=== PATIENT | male | born 1935 | race Caucasian/White ===

== ENCOUNTER 2018-05-10 06:55 | Inpatient (IN) | payer MEDICARE, OTHER ==
--- NOTE | 2018-04-27 16:04 | NUR ---
KATELYN 1320 PATIENT HERE TODAY FOR PREADMISSION APPOINTMENT. HE WAS ACCOMPANIED BY HIS DAUGHTER. HE IS SCHEDULED FOR A RIGHT TOTAL HIP ARTHROPLASTY ON 05/10/18. HIS TIKI WILL BE THE ONE TO TRANSPORT HIM HOME AND TO APPOINTMENTS. HE STATES HE HAS BEEN TO THE [facility] FOR "A WORK UP BEFORE SURGERY" HE WOULD LIKE PHYSICAL THERAPY SET UP WITH THEM FOR AFTER SURGERY. HE STATES HE HAS A FRONT WHEELED WALKER FROM WHEN HE HAD KNEE REPLACMENT SURGERY. HE STATES HE HAS 3 STEPS INTO THE HOME AND NO STEPS ONCE INSIDE THE HOME EXCEPT TO GO TO THE BASEMENT WHICH HE WILL NO BE DOING. HE STATES THEY HAVE A TUB SHOWER WITH A HAND HELD SHOWER HEAD. WE SPOKE IN DEPTH REGARDING THE NEED FOR A SHOWER BENCH/CHAIR AND POSSIBLY A RAISED TOILET SEAT. WE SPOKE REGARDING NOT BRINGING THE KNEE ABOVE THE LEVEL OF THE HIP SO GETTING INTO THE BATH TUB AND SITTING DOWN IN THE TUB WOULD NOT BE A GOOD IDEA. HE AND THE DAUGHTER VERBALIZED UNDERSTANDING. RESOURCES WERE GIVEN FOR THEM TO PURCHASE OR BORROW THESE ITEMS. THIS INFORMATION WILL BE SENT TO DR SAMINA RONDON AND REEMA PLANNING FOR FURTHER FOLLOW UP.
[~2018-05-10] VITALS: Ht 160 cm; Wt 67.1 kg
[~2018-05-10 06:55] MED LIST: AGGRENOX 25 MG-21 EA PO; AMLODIPINE BESY10 MG PO; BUPROPION XL150 MG PO; CENTRUM SILVER1 EAC1 PO; COZAAR100 MG PO; FISH OIL 1,2001 EACH PO; GLUCOPHAGE500 MG PO; GLUCOSAMINE &1 EAC1 PO; HYDROCHLOROTH12.5 MG PO; MELATONIN5 M2 PO; MELOXICAM7.5 MG PO; PERCOCET 7.5-31 EACH PO; PLAVIX75 MG PO; PROBENECID-COL1 EACH PO; SIMVASTATIN40 MG PO; TRAZODONE HCL50 MG PO; VITAMIN D-32000 UNIT PO
--- NOTE | 2018-05-10 11:37 | NUR ---
05/10/18 1137 Aaron Gleason CRNA INJECTING PT WITH CLEAR FLUID AFTER INITIAL BLOOD PRESSURE.
--- NOTE | 2018-05-10 13:48 | NUR ---
DIRECTED FAMILY TO PT'S RM THEY CONTINUE TO ARRIVE. DAUGHTERS AND TIKI PRESENT IN RM ALONG WITH PT'S SULFUR BURNER. I EXTENDED A BLESSING AND LET SULFUR BURNER CARE FOR FAMILY. WILL FOLLOW NEEDED
--- NOTE | 2018-05-10 14:23 | NUR ---
PT IN BED, WITH TIKI AT HIS SIDE. PT WAS READING RECOVERY MATERIAL SUPPLIED BY STAFF. HE HAD NO PAIN, TIKI MENTIONED THAT HIS HIP JOINT WAS FROZEN WITH ARTHRITIS. PRAYED WITH PT, WILL FOLLOW NEEDED
--- NOTE | 2018-05-10 14:58 | NUR ---
PT DOING WELL AFTER SURGERY. TOLERATING CLEAR LIQUIDS. IVF INFUSING AT 125ML/HR.
--- NOTE | 2018-05-10 15:08 | OR ---
[facility] [address], [place] [address] Signed DATE OF OPERATION: 05/10/2018 SURGEON: Jerrell Garcias MD PREOPERATIVE DIAGNOSIS: Severe degenerative joint disease, right hip. POSTOPERATIVE DIAGNOSIS: Severe degenerative joint disease, right hip. PROCEDURE PERFORMED: Right total hip arthroplasty. BIOPROCESSING MANUFACTURING TECHNICIAN: Karen Collazo PA-C. Karen was present in critical positioning, retraction, and wound closure. ANESTHESIA: Spinal. BLOOD LOSS: 200 mL. IMPLANT: #7 Secur-Fit advanced stem 56 mm cup and -2.5 head. BRIEF HISTORY: Jose J is an 82-year-old gentleman with severe pain and stiffness in his hip. Risks and benefits of operative treatment were discussed with him. He elected to proceed. DESCRIPTION OF PROCEDURE: Once consent was obtained, he was taken to the operating room. After adequate anesthesia, he was placed on the operating room table. All downside pressure points were well-padded. He was placed in the left lateral decubitus position and an axillary roll was placed. The hip was then prepped and draped in a standard sterile fashion. The hip was approached through a 5-inch incision centered over the tip of the trochanter through skin and subcutaneous tissue. The IT band was divided longitudinally. The tensor fascia patrick was bluntly split. The vastus lateralis was then split from the tip of the trochanter distally and subperiosteally elevated around the level of the lesser trochanter. The gluteus medius was split bluntly. Gluteus minimus and capsule were Electronically Signed By: JERRELL GARCIAS MD 05/10/18 1508 PATIENT NAME: JOSE J RODRIGUEZ OPERATIVE REPORT DATE OF : 36 REPORT #: [id number] PHYSICIAN: JERRELL GARCIAS MD PCP: DARLING DUTTA MD REPORT IS CONFIDENTIAL AND NOT TO BE RELEASED WITHOUT AUTHORIZATION [facility] [address], [place] [address] Signed split sharply from the trochanter tip to the acetabular rim. It was then peeled off the anterior neck. The hip was dislocated and the femoral neck cut made 1 fingerbreadth above the lesser trochanter. The head was removed. Periacetabular soft tissue was removed. The acetabulum was reamed up to a 56, 56 cup was then impacted into position with 45 degrees of abduction and 15 degrees of anteversion. A single screw was placed in the posterior superior quadrant. The liner was then impacted in position. Attention was turned to proximal femur. This was opened using sammieie cutter, followed by the Wilda awl. It was then sequentially reamed and broached up to an 8. We placed this initially to 0, all the way down to -5 and we were unable to get it to really reduce well. We then took the trial stem out, re-cut about 6 mm more distally. The 7 broach was then impacted and well-seated. The -2.5 head was then placed on the neck and the hip was reduced easily. Leg lengths found to be equally and had excellent range of motion with no over lengthening. The trials were removed and the final stem was impacted until it was well-seated and the location of -2.5 head was impacted. The hip was reduced. Again, taken through the same range of motion and found to be stable. The wound was closed again with antibiotic solution. A total of 2 L of antibiotic irrigation was used under pulse lavage. The capsule was then closed using #1 Vicryl. The vastus and IT bands were closed independently using #1 Stratafix, subcutaneous tissue with #0 Stratafix, and skin with lashanda. Wound was dressed with Mepilex Ag dressing and Opsite and he was awakened, taken to the recovery room in satisfactory condition. All sponge, needle, and instrument counts were correct. He was placed in a hip abduction pillow as well. Jerrell Garcisa MD BA/MODL /[id number] Copies: ~ Electronically Signed By: JERRELL GARCIAS MD 05/10/18 1508 PATIENT NAME: JOSE J RODRIGUEZ OPERATIVE REPORT DATE OF : 36 REPORT #: [id number] PHYSICIAN: JERRELL GARCIAS MD PCP: DARLING DUTTA MD REPORT IS CONFIDENTIAL AND NOT TO BE RELEASED WITHOUT AUTHORIZATION
--- NOTE | 2018-05-10 18:02 | NUR ---
RIGHT HIP REPLACED TODAY. CRYOCUFF OVER MEPILEX/OPSITE. ABDUCTOR PILLOW AND HEEL BOOTS. SCDs AND HENRY HOSE. 1PA FWW. PT/OT. WATT CATHETER. TELE 7. ANCEF. TORADOL/TYLENOL SCHEDULED. PAIN WELL CONTROLLED. 2L 02 VIA NC. NOT CHRONIC. TITRATE.
--- NOTE | 2018-05-10 19:25 | NUR ---
IN ROOM FOR REPORT, PT IS AWAKE IN BED AND DENIES NEEDS AT THIS TIME.
--- NOTE | 2018-05-10 22:30 | NUR ---
IN ROOM TO ADMINISTER MEDICATIONS AND ASSESS PT. HE DENIES PAIN AT THIS TIME. HE STATES HE HAS SOME TINGLING IN RT LEG. CRYO CUFF, AES AND SCDS ARE IN PLACE. PT IS IN CHAIR AT THIS TIME. PT'S HR IS BETWEEN 40'S TO 50'S. 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 HELD TRAZADONE D/T LISTED ADVERSE EFFECTS OF BRADYCARDIA. PT DOES NOT SEEM TO HAVE ANY TROUBLE SLEEPING AT THIS TIME.
--- NOTE | 2018-05-10 23:09 | NUR ---
PATIENT WAS TRANSFERED FROM RM 122 TO RM 111.
--- NOTE | 2018-05-11 00:20 | NUR ---
HELPED PT BACK TO BED, REPLACED TELE BATTERY. PT HAS CRYO, AES, SCDS, HEEL PROTECTORS AND ABD WEDGE IN PLACE. PT RATES PAIN 4/10 AT THIS TIME. 5 MG OXYCODONE ADMINISTERED. PT DENIES FURTHER NEEDS AT THIS TIME. CONT PULSE OX IS ON WITH 2.5 LNC AND CALL LIGHT IS WITHIN REACH.
--- NOTE | 2018-05-11 01:52 | NUR ---
PT IS RESTING WITH EYES CLOSED, RESPIRATIONS ARE EVEN AND NONLABORED. CALL LIGHT IS WITHIN REACH.
--- NOTE | 2018-05-11 03:11 | NUR ---
PT IS AWAKE IN BED, HE DENIES PAIN AT THIS TIME. HE STATES HE NEEDS TO URINATE, REMINDED HIM HE HAS A CATHETER IN PLACE. TORADOL ADMINISTERED. PT DENIES FURTHER NEEDS.
--- NOTE | 2018-05-11 04:47 | NUR ---
PT IS RESTING WITH EYES CLOSED, RESPIRATIONS ARE EVEN AND NONLABORED. CALL LIGHT IS WITHIN REACH.
--- NOTE | 2018-05-11 05:30 | NUR ---
PT HAS SCDS, AES, HEEL PROTECTORS, CRYO CUFF, ABD PILLOW, AND CONT PULSEOX IN PLACE OVERNIGHT. HE HAS REMAINED ON 2.5 LNC BUT MAY BE ABLE TO BE TITRATED DOWN TODAY. HE IS A 1PA WITH FWW. HE IS ON TELE #7 WITH BRADYCARDIA BUT IS ASYMPTOMATIC AND HE STATES THIS IS NORMAL FOR HIM. PT CANNOT RECALL LAST BM. WATT CATH IS TO BE REMOVED THIS AM. DRESSING ON RT HIP REMAINS CDI.
--- NOTE | 2018-05-11 06:13 | NUR ---
IN ROOM TO ADMINISTER MEDICATIONS AND REMOVE WATT CATH. PT IS LOOKING AT BREAKFAST MENU. HE DENIES FURTHER NEEDS AT THIS TIME.
--- NOTE | 2018-05-11 08:01 | NUR ---
THIS GOVERNMENT GAUGER AND GOVERNMENT GAUGER ALISON PULLED UP PATIENT UP IN BED. PATIENT NOW SITTING UP IN BED EATING BREAKFAST. CALL LIGHT WITHIN REACH. NO OTHER NEEDS AT THIS TIME.
--- NOTE | 2018-05-11 09:44 | NUR ---
100ML DRAINED FROM WATT
--- NOTE | 2018-05-11 10:33 | NUR ---
PATIENT SITTING UP IN CHAIR. PTHERAPY WORKED WITH PATIENT. FRESH ICE WATER. ICE IN CRYO. CALL LIGHT WITHIN REACH. FAMILY MEMBERS IN ROOM. NO OTHER NEEDS AT THIS TIME.
--- NOTE | 2018-05-11 10:58 | NUR ---
PT UP TO BATHROOM TO ATTEMPT VOID NOW. NO URGE TO VOID REPORTED BY PATIENT.
--- NOTE | 2018-05-11 11:13 | NUR ---
PT UNABLE TO VOID. BACK TO BED NOW WITH CRYOCUFF, ABDUCTOR PILLOW, SCDs AND HEEL BOOTS IN PLACE. 2L 02 VIA NC. BLADDER SCAN 178ML. WILL ENCOURAGE FLUIDS AND CONTINUE TO MONITOR.
--- NOTE | 2018-05-11 11:28 | NUR ---
PT SITTING IN CHAIR, AND DAUGHTER PRESENT. PT SAID HE HAS NO PAIN AND SLEPT WELL DURING THE NIGHT. P.T. HAS BEEN IN AND PT SAID HE FELT GOOD ABOUT WHAT HE HAS ACCOMPLISHED SO FAR. HE IS ALERT AND ORIENTED-REQUESTED PRAYER, WILL CONTINUE TO FOLLOW NEEDED
--- NOTE | 2018-05-11 12:59 | NUR ---
PATIENT SITTING UP IN BED. FAMILY MEMBERS IN ROOM. NO OTHER NEEDS AT THIS TIME.
--- NOTE | 2018-05-11 14:17 | NUR ---
PATIENT ASSISTED FROM THE BED TO THE BATHROOM. 2 PERSON WITH FWW. PATIENT NOW SITTING UP IN BED. ICE IN CRYO. FRESH ICE WATER. FAMILY MEMBERS IN ROOM. CALL LIGHT WITHIN REACH. VITALS AND I&Os DONE. NO OTHER NEEDS AT THIS TIME.
--- NOTE | 2018-05-11 17:19 | NUR ---
1pa fww up to bathroom. up in recliner eating dinner now.
--- NOTE | 2018-05-11 17:39 | NUR ---
PATIENT SITTING UP IN CHAIR WATCHING TV. CALL LIGHT WITHIN REACH. FRESH ICE WATER. ICE IN CRYO. GARBAGE EMPTIED. VITALS AND I&Os DONE. NO OTHER NEEDS AT THIS TIME.
--- NOTE | 2018-05-11 18:02 | NUR ---
PAIN CONTROL GOOD TODAY. 1PA FWW. WORKED WITH PHYSICAL THERAPY. URINE OUTPUT GOOD. TELE D/Cd. SALINE LOCKED. NO PRN PAIN MEDS GIVEN. ACCU CHECKS D/Cd.
--- NOTE | 2018-05-11 19:03 | NUR ---
IN ROOM FOR REPORT, PT IS AWAKE IN BED AND HAS VISITORS IN THE ROOM. CALL LIGHT IS WITHIN REACH.
--- NOTE | 2018-05-11 21:15 | NUR ---
IN ROOM TO ASSESS PT AND ADMINISTER MEDICATIONS. RT HIP DRESSING REMAINS CDI. PT DENIES NUMBNESS AND TINGLING AND STATES PAIN IS ABOUT A 2 AND TOLERABLE. PT HAS AES, SCDS, HEEL PROTECTORS AND ABD PILLOW. CRYO CUFF IS IN PLACE, PT DENIES NEEDS AT THIS TIME.
--- NOTE | 2018-05-11 22:54 | NUR ---
PT IS RESTING WITH EYES CLOSED, RESPIRATIONS ARE EVEN AND NONLABORED. CALL LIGHT IS WITHIN REACH.
--- NOTE | 2018-05-11 23:36 | NUR ---
PT GOT OUT OF BED WITHOUT CALLING, UPON ENTERING ROOM PT HAD PULLED MEPLIX AND OPSITE OFF RT HIP. THERE WAS A SCANT AMOUNT OF BLOOD ON HIS GOWN. PT IS BACK IN BED WITH BED ALARM ON AND WE ARE FINDING A REPLACEMENT OPPSITE TO PUT IN PLACE OVER NEW MEPILEX.
--- NOTE | 2018-05-11 23:52 | NUR ---
REPLACED MEPILEX AND OPSITE. PT TOLERATED WELL. CRYO CUFF BACK IN PLACE. BED ALARM IS ON AND CALL LIGHT IS WITHIN REACH.
--- NOTE | 2018-05-12 01:42 | NUR ---
PT IS RESTING WITH EYES CLOSED, RESPIRATIONS ARE EVEN AND NONLABORED. CALL LIGHT IS WITHIN REACH.
--- NOTE | 2018-05-12 03:08 | NUR ---
PATIENT CALLED TO USE THE BATHROOM. 1PA USING WALKER. PATIENT IS BACK IN BED. SCD, CRYO, HEEL PROTECTOR, ABDUCTION DEVICE ARE BACK ON. BED ALARM ON. CALL LIGHT IN REACH.
--- NOTE | 2018-05-12 03:18 | NUR ---
PT STATES HIS PAIN IS AT A 3/10 AT THIS TIME, ADMINISTERED TORADOL AND 5MG OXYCODONE ALONG WITH CRACKERS AND FRESH ICEWATER. MEPILEX AND OPSITE REMAIN CDI AFTER PT ACCIDENTALLY REMOVED THEM EARLIER IN THE EVENING. PT GOT UP TO USE RESTROOM AND IS NOW BACK IN BED WITH ALL HIS ORDERED DEVICES IN PLACE. PT DENIES FURTHER NEEDS AT THIS TIME. BEDALARM IS ON AND CALL LIGHT IS WITHIN REACH.
--- NOTE | 2018-05-12 04:27 | NUR ---
PT IS RESTING WITH EYES CLOSED, RESPIRATIONS ARE EVEN AND NONLABORED. CALL LIGHT IS WITHIN REACH AND BED ALARM IS ON.
--- NOTE | 2018-05-12 05:32 | NUR ---
HELPED PT TO RESTROOM AND BACK TO BED. ADMINISTERED SCHEDULED TYLENOL. PT HAS FRESH ICEWATER AT BEDSIDE. HE DENIES FURTHER NEEDS AND PAIN AT THIS TIME.
--- NOTE | 2018-05-12 05:33 | NUR ---
PT RATED PAIN BETWEEN 1-3 THROUGH THE NIGHT ONLY TAKING OXYCODONE ONCE, AND HAS BEEN DOING WELL WITH THE SCHEDULED TORADOL AND TYLENOL. HE IS A 1PA WITH FWW. HE SLEPT WITH SCDS, AES, ABD WEDGE, CRYO CUFF, AND HEEL PROTECTORS IN PLACE. AT THIS TIME HE IS AWAKE IN BED AND REQUESTS ONLY THE CRYO AND SCDS. HE IS TOLERATING AN ADA DIET. HE WAS A LITTLE CONFUSED AT ONE POINT IN THE NIGHT AND REMOVED HIS OPSITE AND MEPILEX WHICH WAS REPLACED. HE ALSO REQUIRED A NEW IV START IN HIS LEFT FOREARM. PT MAY DC TODAY.
--- NOTE | 2018-05-12 08:26 | NUR ---
PT SITTING UP IN RECLINER, ATE 100% OF BREAKFAST, ANIBAL WELL. PT DENIES PAIN, NAUSEA, OR OTHER CONCERNS. RIGHT HIP DRESSED WITH MEPILEX AND OPSITE, CDI. ASSESSMENT COMPLETED. PT ALERT AND ORIENTED. CALL LIGHT WITHIN REACH.
[2018-05-12] MEDS ORDERED: TAMSULOSIN HCL0.4 MG PO (08:29)
[2018-05-12] MEDS ORDERED: NEURONTIN300 MG PO (08:30)
[2018-05-12] MEDS ORDERED: MAPAP500 M1 PO (08:30)
[2018-05-12] MEDS ORDERED: MIRALAX17 GM PO (08:30)
[2018-05-12] MEDS ORDERED: OXYCODONE HCL5 MG PO (08:30)
--- NOTE | 2018-05-12 09:17 | NUR ---
THIS PRODUCT DEVELOPMENT SPECIALIST ASSISTED PATIENT UP TO BATHROOM, BACK TO BEDSIDE RECLINER. PATIENT REFUSED ORAL CARE, STATING HE HAD PRESCRIPTION TOOTHPASTE HE'D RATHER USE WHEN HE GETS HOME. PATIENT STATES HE IS WAITING TO DISCHARGE TODAY. CHAIR ALARM ON, CRYO REFILLED AND PLACED ON PATIENT'S HIP. PATIENT CALL LIGHT IN REACH, NO OTHER NEEDS AT THIS TIME.
--- NOTE | 2018-05-12 10:05 | NUR ---
PT GOT DRESSED IN PERSONAL CLOTHING WITH ASSISTANCE FROM . THIS RN DC'D IV. SITE WITHOUT REDNESS OR INFLAMMATION. CALL LIGHT WITHIN REACH.
--- NOTE | 2018-05-12 12:20 | NUR ---
FAXED CHART NOTES TO [facility] OP PT INCLUDING FACESHEET, ORDER, H AND P, OP NOTE, PROG NOTES, PT AND OT EVALS AND NOTES. RECIEVED FAX CONFIRMATIONS.
--- NOTE | 2018-05-16 19:28 | DS ---
[facility] [address], [place] [address] Signed ADMISSION DATE: 05/10/2018 DISCHARGE DATE: 05/12/2018 ADMISSION DIAGNOSIS: Degenerative joint disease, right hip. DISCHARGE DIAGNOSIS: Degenerative joint disease, right hip. PROCEDURE PERFORMED DURING THIS HOSPITALIZATION: Right total hip arthroplasty. BRIEF HISTORY: Jose J is an 82-year-old gentleman with severe arthritis in his hip. Risks and benefits of operative treatment were discussed and he elected to proceed. Once consent was obtained, he was taken to the operating room, underwent the above-named procedure. He tolerated this well, was taken to recovery room and subsequently to orthopedic floor. He was placed on oxycodone and gabapentin for pain control in addition to Toradol. He did well with these. The oxycodone was 5 mg 1-2 every 4 hours p.r.n. He was seen by Physical Therapy, able to ambulate up and down the hallway, up and down the stairs by the day of discharge. He will be discharged to home with the above medications. He will stop his Xarelto, which was kept during his hospitalization and restart his clopidogrel. He will see outpatient physical therapy and return to see me in 10-14 days as scheduled or sooner should he have problems. Jerrell Garcias MD BA/LESVIA /[id number] Copies: ~ Electronically Signed By: JERRELL GARCIAS MD 05/16/18 1928 PATIENT NAME: JOSE J RODRIGUEZ DISCHARGE SUMMARY DATE OF : 36 REPORT #: [id number] PHYSICIAN: JERRELL GARCIAS MD PCP: DARLING DUTTA MD REPORT IS CONFIDENTIAL AND NOT TO BE RELEASED WITHOUT AUTHORIZATION
== END 2018-05-12 11:20 | disposition home or self-care (01) | DRG 470 ==
LOC: DS 06:55 → MS 09:00 → DS 09:00 → EDSTATUS 09:00 → DS 12:36 → MS 12:38
PROVIDERS: ADMIT Specialist
PROC: 0SR90JZ Replacement of Right Hip Joint with Synthetic Substitute, Open Approach (ICD-10-PCS; principal; 2018-05-10 09:00)
DX: M16.11 Unilateral primary osteoarthritis, right hip (principal); E11.22 Type 2 diabetes mellitus with diabetic chronic kidney disease; I12.9 Hypertensive chronic kidney disease with stage 1 through stage 4 chronic kidney disease, or unspecified chronic kidney disease; N18.3 Chronic kidney disease, stage 3 (moderate); G89.29 Other chronic pain; M54.9 Dorsalgia, unspecified; I49.9 Cardiac arrhythmia, unspecified; E78.5 Hyperlipidemia, unspecified; F39 Unspecified mood [affective] disorder; G47.00 Insomnia, unspecified; Z87.891 Personal history of nicotine dependence; Z79.899 Other long term (current) drug therapy; Z79.84 Long term (current) use of oral hypoglycemic drugs; Z79.02 Long term (current) use of antithrombotics/antiplatelets; Z86.73 Personal history of transient ischemic attack (TIA), and cerebral infarction without residual deficits; Z79.1 Long term (current) use of non-steroidal anti-inflammatories (NSAID)
CPT/HCPCS: 36415; 51798; 72170; 80048; 83735; 85025; 97110; 97116; 97162; 97165; C1776; G8978; G8979; J0690; J1100; J1885; J2250; J2274; J2405; J2704; J3010; J7040; J7120

== ENCOUNTER 2021-07-19 06:30 | Day surgery (SDC) | payer MEDICARE, OTHER ==
[~2021-07-19] VITALS: Ht 157.5 cm; Wt 66.6 kg
[~2021-07-19 06:30] MED LIST changes: +ALLOPURINOL100 MG PO; +CITALOPRAM HBR40 MG PO; +DULOXETINE HCL20 MG PO; +FAMOTIDINE40 MG PO; +HYDRALAZINE HCL25 MG PO; +LIPITOR20 MG; +MAPAP500 M1 PO; +MIRALAX17 GM PO; +MOTRIN IB200 MG PO; +NEURONTIN300 MG PO; +OMEPRAZOLE20 MG PO; +OSTERA TABLET1 EACH PO; +OXYCODONE HCL5 MG PO; +TAMSULOSIN HCL0.4 MG PO; +TYLENOL EXTRA500 MG PO
[2021-07-19] MEDS ORDERED: HYDROCODON-ACE1 EA10 PO (08:53)
--- NOTE | 2021-07-19 08:54 | NUR ---
07/19/21 0854 Lorie Hussein 0824- PT ARRIVES TO PACU AWAKE AND ORIENTED. PT REPORTS NO PAIN OR NAUSEA. RESP EVEN AND UNLABORED. OXYGEN SAT MID TO HIGH 90'S ON RA. ICE PACK APPLIED TO PT'S RIGHT HAND/ WRIST.
--- NOTE | 2021-07-19 10:34 | OR ---
[facility] [address], [place] [address] Signed DATE OF OPERATION: 07/19/2021 SURGEON: Jerrell Garcias MD PREOPERATIVE DIAGNOSIS: Carpal tunnel syndrome, right. POSTOPERATIVE DIAGNOSIS: Carpal tunnel syndrome, right. PROCEDURE PERFORMED: Carpal tunnel release, right. CLIENT PROJECT COORDINATOR: None. ANESTHESIA: Anjali block. TOURNIQUET TIME: 19 minutes. BRIEF HISTORY: Jose J is an 86-year-old gentleman with progressive worsening of numbness, tingling and weakness in his hand. He had mild atrophy. Nerve conduction studies were consistent with severe carpal tunnel. Risks and benefits of operative treatment were discussed with him and he elected to proceed. DESCRIPTION OF PROCEDURE: Once consent was obtained, he was taken to the operating room. After adequate anesthesia, he was kept on day surgery bed and hand table was brought in. The arm was then prepped and draped in a standard sterile fashion after establishment of Anjali block. The carpal tunnel was approached through a 1.5 cm incision in the distal wrist crease. This was carried through skin and subcutaneous tissue. Palmaris longus was identified and retracted. Under loupe magnification, the transverse carpal ligament was identified and released proximally a cm and half and distally, it was released to its distal extent. The Grandfield elevator was placed in the canal to protect the nerve due to the extreme tightness of the ligament. It was released successfully and palpated using a Grandfield and found to be completely released. The wound was copiously irrigated with normal saline and closed with 3-0 nylon and injected with 5 mL of 0.25% Marcaine plain. Electronically Signed By: JERRELL GARCIAS MD 07/19/21 1034 PATIENT NAME: JOSE J RODRIGUEZ OPERATIVE REPORT DATE OF : 36 REPORT #: [id number] PHYSICIAN: JERRELL GARCIAS MD PCP: DARLING DUTTA MD REPORT IS CONFIDENTIAL AND NOT TO BE RELEASED WITHOUT AUTHORIZATION [facility] [address] [place] [address] [place], [place] [address] Signed The wound was then dressed with bacitracin, Adaptic, 4 x 8s, and gauze. He tolerated the procedure well. All sponge, needle, and instrument counts were correct. Jerrell Garcias MD BA/MODL /[id number] Copies: ~ Electronically Signed By: JERRELL GARCIAS MD 07/19/21 1034 PATIENT NAME: JOSE J RODRIGUEZ OPERATIVE REPORT DATE OF : 36 REPORT #: [id number] PHYSICIAN: JERRELL GARCIAS MD PCP: DARLING DUTTA MD REPORT IS CONFIDENTIAL AND NOT TO BE RELEASED WITHOUT AUTHORIZATION
--- NOTE | 2021-07-21 12:53 | EKG ---
[facility] [address] [facility] [place] [address] Signed Marked sinus bradycardia Right bundle branch block Left anterior fascicular block Bifascicular block Abnormal ECG When compared with ECG of 28-NOV-2020 12:44, premature ventricular complexes are no longer present T wave inversion no longer evident in Lateral leads Confirmed by DEMETRIS DELAROSA MD ([id number]) on 07/21/2021 12:53:11 PM Electronically Signed By: DEMETRIS DELAROSA MD 07/21/21 1253 PATIENT NAME: FIDENCIO RODRIGUEZ Electrocardiogram DATE OF : 36 PHYSICIAN: DEMETRIS DELAROSA MD REPORT #: [id number] REPORT IS CONFIDENTIAL AND NOT TO BE RELEASED WITHOUT AUTHORIZATION
== END 2021-07-19 09:20 | disposition home or self-care (01) ==
LOC: DS 06:30
PROVIDERS: ATTEND Specialist
PROC: 01N50ZZ Release Median Nerve, Open Approach (ICD-10-PCS; principal; 2021-07-19 08:05)
DX: G56.01 Carpal tunnel syndrome, right upper limb (principal); Z79.84 Long term (current) use of oral hypoglycemic drugs; Z79.02 Long term (current) use of antithrombotics/antiplatelets
CPT/HCPCS: 01810; 85025; 93005; 93010; J0690; J2001; J2704; J7121

== ENCOUNTER 2023-09-17 17:33 | Emergency (ER) | payer MEDICARE, OTHER ==
[~2023-09-17] VITALS: Ht 157.5 cm; Wt 58.6 kg
[~2023-09-17 17:33] MED LIST changes: +FLUOXETINE HCL40 MG PO; +HYDRALAZINE HCL10 MG PO; +HYDROCODON-ACE1 EA10 PO; +IRBESARTAN75 MG PO; +LATANOPROST2.5 ML OPTH; +PANTOPRAZOLE SO40 MG PO; +TRULICITY1.5 MG/0.5
--- OUTSIDE RECORDS SUMMARY | 2023-09-17 17:35 | XMS ---
PreManage Notification: FIDENCIO RODRIGUEZ [employer] Man Events No recent Security Events currently on file CRITERIA MET - [facility] - 2 Visits in 30 Days CARE PROVIDERS There are no care providers on record at this time. [place] has no Care Guidelines for this patient. [place] VISIT COUNT (12 MO.) 2 [facility] [place] [facility]. TOTAL 2 NOTE: Visits indicate total known visits. ED/[facility] VISIT TRACKING (12 MO.) 09/17/2023 17:33 [facility] [place] TYPE: Emergency COMPLAINT: - BLOOD SUGAR PROBLEM 08/24/2023 17:00 [facility] [place] TYPE: Emergency COMPLAINT: - WEAKNESS DIAGNOSES: - Abnormal weight loss - COVID-19 - Hydrops of gallbladder - long-term (current) use of antithrombotics/antiplatelets - Nausea - Other detention (current) drug therapy - Other specified diseases of pancreas - Personal history of nicotine dependence - Unspecified jaundice INPATIENT VISIT TRACKING (12 MO.) No inpatient visits to display in this time frame [email or web address]
[2023-09-17 18:18] LABS: BASOPHILS 0.6 % (0-2); EOSINOPHILS 0.9 % (0-6); HEMATOCRIT 37.7 % (35.0-50.0); HEMOGLOBIN 12.5 g/dL (12.0-18.0); LYMPHOCYTES 6.3 % (24-44); MCH 30.2 (27-36); MCHC 33.2 g/dl (30-36); MCV 90.9 fl (81-99); MONOCYTES 7.1 % (0-12); NEUTROPHILS 85.1 % (39-80); PLATELET COUNT 246 K/uL (140-440); RBC 4.15 M/ul (4.3-5.7)
[2023-09-17] MEDS ORDERED: METFORMIN HCL500 MG PO (18:27)
[2023-09-17 18:32] LABS: ALBUMIN 3.3 g/dL (3.4-5.0); ALBUMIN/GLOBULIN RATIO 1.14 (1.1-2.4); ANION GAP 17.6 (7-21); BILIRUBIN, TOTAL 1.7 ng/dL (0.2-1.0); BUN/CREATININE RATIO 35.2 (6.0-28.6); CALCIUM 9.2 mg/dL (8.5-10.1); CREATININE, SERUM 1.25 mg/dL (0.70-1.30); POTASSIUM 4.6 mmol/L (3.5-5.1); PROTEIN, TOTAL 6.2 g/dL (6.4-8.2)
[2023-09-17 19:08] LABS: BILIRUBIN, URINE NEGATIVE (negative); BLOOD/HGB, URINE NEGATIVE (Negative); KETONE, URINE SMALL (Negative); LEUK ESTERASE, URINE NEGATIVE (negative); NITRITE, URINE NEGATIVE (negative); PH, URINE 5.5 (5-7)
[2023-09-17] MEDS ORDERED: NOVOLOG100 UNIT/2 SUB-Q (19:49)
[2023-09-17 20:09] VITALS: BP 118/61
== END 2023-09-17 20:09 | disposition home or self-care (01) ==
LOC: ED 17:33
PROVIDERS: Emergency Medicine
DX: E11.65 Type 2 diabetes mellitus with hyperglycemia (principal); K86.9 Disease of pancreas, unspecified; I10 Essential (primary) hypertension; Z79.899 Other long term (current) drug therapy; Z87.891 Personal history of nicotine dependence; Z96.653 Presence of artificial knee joint, bilateral; Z96.641 Presence of right artificial hip joint; Z79.84 Long term (current) use of oral hypoglycemic drugs
CPT/HCPCS: 36415; 80053; 81003; 83690; 85025; 96360; 99284-25; J1815; J7030